=== PATIENT | female | born 2005 | race Caucasian/White ===

== ENCOUNTER 2024-01-05 11:23 | Outpatient (AMB) | payer BC, SELFPAY ==
--- NOTE | 2024-01-05 11:31 | MHC.PC.OV ---
Vital Signs 01/05/24 11:39 Height 5 ft 7 in Weight 134 lb BMI 21.0 BP 102/68 Blood Pressure Location Rt brachial Position Sitting Respiration 16 Pulse 85 Pulse Source Pulse Oximeter Temp 98.8 F Temp Source Oral Pulse Oximetry (%) 97 Oxygen Delivery Method Room Air Intake Visit Reasons: establish care Intake Note: New patient visit. Vertigo, anxiety, stomach issues Steam Tender Required: No Accompanied by: Mother Is last menstrual period known: Yes Last menstrual period: 01/05/24 Patient : No Allergies No Known Allergies Allergy (Verified 01/05/24 11:34) Medication List - Last Reconciled 01/05/24 by Alexia Hare PA-C clindamycin phosphate 1% 1 appl topical DAILY escitalopram oxalate (Lexapro) 5 mg PO DAILY spironolactone 100 mg PO DAILY tretinoin 0.025% 1 appl topical BEDTIME Tobacco use date assessed: 01/05/24 Dental Screening Dental Screen Date: 01/05/24 Did you have a dental visit in the last 12 months?: Yes Did you have a dental problem in the last 6 months where you did not have access to dental care?: No Was dental information given to patient?: Patient has dentist [facility] Medical History (Updated 01/05/24 @ 12:41 by Alexia Hare PA-C) PCOS (polycystic ovarian syndrome) Generalized anxiety disorder with panic attacks IBS (irritable bowel syndrome) Family History (Updated 01/05/24 @ 12:45 by Alexia Hare PA-C) Mother Hypothyroid Maternal Grandfather FH: prostate cancer Paternal Uncle Colon cancer Social History Patient Tobacco Use Status: Never used Tobacco e-Cigarette/Vaping Use: Never Used Second Hand Smoke Exposure: No service: No Current occupational status: unemployed and student Cognitive needs: No Hearing needs: No Vision needs: No Female Reproductive History Menstrual Date of last menstrual period: 01/05/24 Questionnaire AUDIT C Alcohol Use Questionnaire (AUDIT-C) 1. How often do you have a drink containing alcohol?: Never 3. How often do you have six or more drinks on one occasion?: Never Total Score: 0 Physical exam (Primary Care) Vital Signs: Last Vital Signs Temp 98.8 F 01/05/24 11:39 Pulse 85 01/05/24 11:39 Resp 16 01/05/24 11:39 BP 102/68 01/05/24 11:39 Pulse Ox 97 01/05/24 11:39 Oxygen Delivery Method Room Air 01/05/24 11:39 BMI result Body Mass Index 21.0 Tobacco/Smoking Status: Tobacco use Status Tobacco use date assessed 01/05/24 01/05/24 11:48 Patient Tobacco Use Status Never used Tobacco 01/05/24 11:48 e-Cigarette/Vaping Use Never Used 01/05/24 11:48 PHQ-9: PHQ-9 Score PHQ-9: Total score 3 01/05/24 12:40 Thrive Assessment: Date of Thrive Assessment Date Thrive assessed 01/05/24 01/05/24 12:02 Assessment and Plan Assessment & Plan Orders: Orders Complete Blood Count Auto Diff Today Z00.00 - Encounter for general adult medical examination without abnormal findings TSH reflex Free T4 () Today F41.0 - Panic disorder [episodic paroxysmal anxiety], F41.1 - Generalized anxiety disorder, R10.84 - Generalized abdominal pain, R19.7 - Diarrhea, unspecified US abdomen complete Today R10.84 - Generalized abdominal pain, R19.7 - Diarrhea, unspecified Comprehensive Met. Panel Today F41.0 - Panic disorder [episodic paroxysmal anxiety], F41.1 - Generalized anxiety disorder, R10.84 - Generalized abdominal pain, R19.7 - Diarrhea, unspecified Referrals Gastroenterology Referral K58.9 - Irritable bowel syndrome without diarrhea, R10.84 - Generalized abdominal pain, R19.7 - Diarrhea, unspecified Medications: New spironolactone 100 mg PO DAILY escitalopram oxalate (Lexapro) 5 mg PO DAILY 30 tabs 1RF Coding
[2024-01-05 11:39] VITALS: BP 102/68; PULSE 85; RESP 16; TEMP 37.1; O2SAT 97; BMI 21.0
--- NOTE | 2024-01-05 11:39 | MHC.PC.OV ---
Vital Signs 01/05/24 11:39 Height 5 ft 7 in Weight 134 lb BMI 21.0 BP 102/68 Blood Pressure Location Rt brachial Position Sitting Respiration 16 Pulse 85 Pulse Source Pulse Oximeter Temp 98.8 F Temp Source Oral Pulse Oximetry (%) 97 Oxygen Delivery Method Room Air Intake Visit Reasons: establish care Allergies No Known Allergies Allergy (Verified 01/05/24 11:34) Medication List - Last Reconciled 01/05/24 by Alexia Hare PA-C clindamycin phosphate 1% 1 appl topical DAILY escitalopram oxalate (Lexapro) 5 mg PO DAILY spironolactone 100 mg PO DAILY tretinoin 0.025% 1 appl topical BEDTIME Tobacco use date assessed: 01/05/24 Dental Screening Dental Screen Date: 01/05/24 Did you have a dental visit in the last 12 months?: Yes Did you have a dental problem in the last 6 months where you did not have access to dental care?: No Was dental information given to patient?: Patient has dentist HPI establish care HPI Details Patient is a 18-year-old female who presents today to establish [facility]. She has a significant pmhx of pcos acne, generalized anxiety and ibs. She has a few concerns today. Her last PCP was from pediatrics with a cpe in 05/25. GI: She states she has been having diarrhea/gi issues since childhood. In childhood she thinks she tried a medication like bentyl. She states that a few years ago she complained to her computer support specialist instructor about her symptoms and she was told that it was likely related to anxiety. She tells me that she is generally an anxious person. At that time, it was recommended that she start therapy. She states that her symptoms are not better despite going to a therapist and have gradually worsened.. She states that for the last year she has been having 5-6 bowel movements a day. She states there is no blood but at times there is mucus in the stools. She has intermittent ?normal? soft bowel movements that occur maybe once every 1-2 weeks. She states that it is always in the setting with diarrhea throughout the day. Anytime she eats something she feels like it goes right through her. She does try to eat healthy. She states that she is had allergy testing for lactose and gluten but was told that she did not have anything like that. Before she developed the diarrhea she does have intense abdominal pain and cramping. She states that after she eats she will get a generalized discomfort and stabbing pain throughout her abdomen but worse surrounding the umbilicus. It does tend to resolve when she has a bowel movement. She denies any rectal pain or irritation. No weight loss. No hx of prior colonoscopy. Paternal uncle has colon ca at age of 60. Psych: She tells me today that she is at the point where she thinks that she should start medication for this. She tells me that she worries over most things even if she knows that will be fine. Denies any depression. No thoughts of hopelessness. No SI/HI. Club Manager: History of PCOS and does follow [facility]. She has never been sexually active. Derm: Follows with [facility] and sees them for acne. She is currently on clindamycin, tretinoin and spironolactone 100 mg. [facility] Medical History (Updated 01/05/24 @ 12:41 by Alexia Hare PA-C) PCOS (polycystic ovarian syndrome) Generalized anxiety disorder with panic attacks IBS (irritable bowel syndrome) Family History (Updated 01/05/24 @ 12:44 by Alexia Hare PA-C) Mother Hypothyroid Maternal Grandfather FH: prostate cancer Paternal Uncle Colon cancer Social History Patient Tobacco Use Status: Never used Tobacco e-Cigarette/Vaping Use: Never Used Second Hand Smoke Exposure: No service: No Current occupational status: unemployed and student Cognitive needs: No Hearing needs: No Vision needs: No Questionnaire PHQ-9 Over the last 2 weeks, how often have you been bothered by any of the following problems? 1. Little interest or pleasure in doing things: not at all 2. Feeling down, depressed, or hopeless: several days 3. Trouble falling or staying asleep, or sleeping too much: several days 4. Feeling tired or having little energy: several days 5. Poor appetite or overeating: not at all 6. Feeling bad about yourself - or that you are a failure or have let yourself or your family down: not at all 7. Trouble concentrating on things, such as reading the newspaper or watching television: not at all 8. Moving or speaking so slowly that other people could have noticed. Or the opposite - being so fidgety or restless that you have been moving around a lot more than usual: not at all 9. Thoughts that you would be better off or of hurting yourself in some way: not at all Total score: 3 Depression Screening Interpretation: Positive Depression Screening Follow-up: New Medication prescribed Depression Screening Done: Yes 88986 - PHQ-9 Billing: Yes Source: Developed by Drs. Tristan Moon, Alise Espinoza, Agapito Higgins and colleagues, with an educational bryant from [employer]. Thrive Questionnaire Date Thrive assessed: 01/05/24 I am a: Patient What is your living situation today?: I have a steady place to live Within the past 12 months, did the food you bought not last and you didn't have the money to get more?: Never true Within the past 12 months, did you worry whether your food would run out before you got money to buy more?: Never true Do you have trouble paying for medicines?: No Do you have trouble getting transportation to medical appointments?: No Do you have trouble paying your heating and electricity bill?: No Do you have trouble taking care of your child, family member or friend?: No Do you have trouble with day-to-day activities such as bathing, preparing meals, shopping, managing finances, etc.?: No Are you currently unemployed and looking for a job?: No Are you interested in more education?: No Please select the resources that you would like help with: None Currently or been in a relationship where the following occur: no concerns reported THRIVE Score: 0 AUDIT C Alcohol Use Questionnaire (AUDIT-C) 1. How often do you have a drink containing alcohol?: Never 3. How often do you have six or more drinks on one occasion?: Never Total Score: 0 Score Reviewed/Action Taken: Yes REESE-7 AMB Questionnaire REESE-7 Date REESE - 7 assessed: 01/05/24 Feeling nervous, anxious, or on edge: 1 = Several days Not being able to stop or control worryin = Several days Worrying too much about different things: 1 = Several days Trouble relaxin = Not at all Being so restless that it is hard to sit still: 1 = Several days Becoming easily annoyed or irritable: 1 = Several days Feeling afraid as if something awful might happen: 1 = Several days Total REESE-7 score (0-4 normal; 5-9 mild; 10-14 moderate; 15-21 severe): 6 Source: Developed by Drs. Tristan Moon, Alise Espinoza, Agapito Higgins and colleagues, with an educational bryant from [employer]. REESE-7 Assessment Billing REESE-7 Assessment Tool: REESE-7 Assessment 09108 Physical exam (Primary Care) Vital Signs: Last Vital Signs Temp 98.8 F 01/05/24 11:39 Pulse 85 01/05/24 11:39 Resp 16 01/05/24 11:39 BP 102/68 01/05/24 11:39 Pulse Ox 97 01/05/24 11:39 Oxygen Delivery Method Room Air 01/05/24 11:39 BMI result Body Mass Index 21.0 Tobacco/Smoking Status: Tobacco use Status Tobacco use date assessed 01/05/24 01/05/24 11:39 Patient Tobacco Use Status Never used Tobacco 01/05/24 11:39 e-Cigarette/Vaping Use Never Used 01/05/24 11:39 Depression Screening Interpretation: Positive Depression Screening Follow-up: New Medication prescribed Currently or been in a relationship where the following occur: no concerns reported Const Orientation/consciousness: patient oriented x3 HENMT Ears: hearing grossly normal bilaterally Neck Thyroid: Thyroid normal Lymphatic: no lymphadenopathy noted Resp Auscultation: clear to auscultation bilaterally Cardio Rate: regular rate Rhythm: regular rhythm Heart sounds: S1 normal heart sound present and S2 normal heart sound present GI Inspection: Yes normal to inspection Palpation (GI): Soft to palpation and Other GI palpation findings present (nontender, no cva tenderness) Auscultation: normoactive bowel sounds Rectal Exam - Female: deferred Skin General skin exam: no rashes or lesions noted Neuro General: patient oriented x3, gait normal and no focal motor deficits Assessment and Plan Assessment & Plan (1) Generalized abdominal pain: Code(s): R10.84 - Generalized abdominal pain Plan: Abdominal exam today is benign. Labs ordered including CBC, CMP, TSH. We did discuss elimination diet. Referral to GI placed. We discussed warning signs of abdominal pain that would require emergent medical treatment. (2) Diarrhea: Code(s): R19.7 - Diarrhea, unspecified Plan: See above (3) Generalized anxiety disorder with panic attacks: Code(s): F41.1 - Generalized anxiety disorder; F41.0 - Panic disorder [episodic paroxysmal anxiety] Plan: Will start patient on Lexapro. Discussed risks and benefits and adverse effects of this medication. Advised to follow-up in 4-6 weeks. Sooner if needed. Patient understands and agrees with this plan. Orders: Orders Complete Blood Count Auto Diff Today Z00.00 - Encounter for general adult medical examination without abnormal findings TSH reflex Free T4 () Today F41.0 - Panic disorder [episodic paroxysmal anxiety], F41.1 - Generalized anxiety disorder, R10.84 - Generalized abdominal pain, R19.7 - Diarrhea, unspecified US abdomen complete Today R10.84 - Generalized abdominal pain, R19.7 - Diarrhea, unspecified Comprehensive Met. Panel Today F41.0 - Panic disorder [episodic paroxysmal anxiety], F41.1 - Generalized anxiety disorder, R10.84 - Generalized abdominal pain, R19.7 - Diarrhea, unspecified Referrals Gastroenterology Referral K58.9 - Irritable bowel syndrome without diarrhea, R10.84 - Generalized abdominal pain, R19.7 - Diarrhea, unspecified Medications: New spironolactone 100 mg PO DAILY escitalopram oxalate (Lexapro) 5 mg PO DAILY 30 tabs 1RF Coding Level of Care Code New Pt Level 4 (35146) Diagnoses Generalized abdominal pain R10.84 Diarrhea R19.7 Generalized anxiety disorder with panic attacks F41.1; F41.0 Additional Codes REESE-7 Assessment Billing - REESE-7 Assessment Tool: REESE-7 Assessment 19181 ([id number])
== END 2024-01-05 12:32 | disposition home or self-care (01) ==
PROVIDERS: PCP Pediatrics; Visit Provider Physician Assistant
DX: R10.84 Generalized abdominal pain (principal); R19.7 Diarrhea, unspecified; F41.1 Generalized anxiety disorder; F41.0 Panic disorder [episodic paroxysmal anxiety]
CPT/HCPCS: 96127; 99204

== ENCOUNTER 2024-01-05 12:34 | Outpatient (REF) | payer BC, SELFPAY ==
[2024-01-05 14:20] LABS: MANUAL DIFF FLAG NO
[2024-01-05 14:23] LABS: Basophils Percent Auto 0.7 % (0-2); Eosinophils Percent Auto 0.4 % (0-4); Hematocrit 40.6 % (37.0-47.0); Hemoglobin 13.5 g/dl (12.0-16.0); Imm Gran Abs Auto 0.02 X10*3/uL (0.00-0.03); Imm Gran Pct Auto 0.4 % (0.0-0.4); Lymphocytes Percent Auto 36.5 % (20-40); Mean Corpuscular HGB Conc 33.3 g/dl (31.0-35.0); Mean Corpuscular Volume 84.1 fL (80.0-98.0); Mean Platelet Volume 9.3 fL (9.4-12.3); Monocytes Absolute Auto 0.4 X10*3/uL (0.1-1.2); Monocytes Percent Auto 6.4 % (2-11); Neutrophils Absolute Auto 3.1 x10*3/uL (2.0-8.3); Neutrophils Percent Auto 55.6 % (45-73); Platelet Count 385 X10*3/uL (160-400); Red Blood Count 4.83 X10*6/uL (4.20-5.50); Red Cell Distribution Width 11.7 % (11.0-16.0); White Blood Count 5.5 X10*3/uL (4.8-10.8)
[2024-01-05 14:46] LABS: Alanine Aminotransferase 19 U/L (0-31); Albumin Level 3.9 g/dL (3.5-5.0); Alkaline Phosphatase 62 U/L (39-117); Anion Gap 10 (12-20); Aspartate Amino Transferase 18 U/L (5-31); Bilirubin Total 0.3 mg/dL (0.0-1.0); Blood Urea Nitrogen 11 mg/dL (9-16); Calcium 9.5 mg/dL (8.4-10.2); Carbon Dioxide 27 mmol/L (22-29); Chloride 109 mmol/L (96-108); Estimated Glomerular Filt Rate > 60; Glucose Random 84 mg/dL (60-115); Potassium 4.5 mmol/L (3.3-5.1); Sodium 141 mmol/L (135-145)
[2024-01-05 14:59] LABS: TSH reflex Free T4 (Prenatal) 0.96 uIU/mL (0.32-4.0)
== END 2024-01-05 12:35 | disposition home or self-care (01) ==
LOC: HO.WFDLDS 12:34
PROVIDERS: Visit Provider Physician Assistant
DX: Z00.00 Encounter for general adult medical examination without abnormal findings (principal); R10.84 Generalized abdominal pain; F41.1 Generalized anxiety disorder; F41.0 Panic disorder [episodic paroxysmal anxiety]; R19.7 Diarrhea, unspecified
CPT/HCPCS: 36415; 80053; 85025

== ENCOUNTER 2024-02-08 13:42 | Outpatient (AMB) | payer BC, SELFPAY ==
--- NOTE | 2024-02-08 13:58 | A.OFFPC_ITS ---
Vital Signs 02/08/24 14:00 Height 5 ft 7 in Weight 128 lb 6 oz BMI 20.1 BP 108/64 Blood Pressure Location Rt brachial Position Sitting Respiration 16 Pulse 78 Pulse Source Pulse Oximeter Pulse Oximetry (%) 96 Oxygen Delivery Method Room Air Intake Visit Reasons: anxiety med Intake Note: Follow up anxiety medication Guest Services Officer Required: No Allergies No Known Allergies Allergy (Verified 02/08/24 13:59) Medication List - Last Reconciled 02/08/24 by Alexia Hare PA-C clindamycin phosphate 1% 1 appl topical DAILY escitalopram oxalate (Lexapro) 10 mg PO DAILY 90 days spironolactone 100 mg PO DAILY tretinoin 0.025% 1 appl topical BEDTIME Tobacco use date assessed: 02/08/24 Dental Screening Dental Screen Date: 01/05/24 HPI anxiety med HPI Details Patient is a 18-year-old female who presents today for a follow up regarding her anxiety. At our last visit I started her on Lexapro. Psych: At our last visit she was started on Lexapro. She states that this is somewhat effective but she thinks that she would benefit from an increased dosage. She recently completed her college finals and states that that was stressful. 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 She states that she will start the [employer] program in May through October. No SI/HI. She states that she just wants her anxiety controlled prior to going to [employer]. GI: At our last visit she was encouraged to try an elimination diet. She did not try the diet. Her pain is unchanged. She states she had to reschedule her u ltrasound because of finals. She forgot to do this and plans to call today. She was referred to GI and states that she has not heard about an appointment but plans to call. [facility] Medical History (Updated 01/05/24 @ 12:41 by Alexia Hare PA-C) PCOS (polycystic ovarian syndrome) Generalized anxiety disorder with panic attacks IBS (irritable bowel syndrome) Family History (Updated 01/05/24 @ 12:45 by Alexia Hare PA-C) Mother Hypothyroid Maternal Grandfather FH: prostate cancer Paternal Uncle Colon cancer Social History Patient Tobacco Use Status: Never used Tobacco e-Cigarette/Vaping Use: Never Used Second Hand Smoke Exposure: No service: No Current occupational status: unemployed and student Cognitive needs: No Hearing needs: No Vision needs: No Questionnaire PHQ-9 Over the last 2 weeks, how often have you been bothered by any of the following problems? 1. Little interest or pleasure in doing things: several days 2. Feeling down, depressed, or hopeless: several days 3. Trouble falling or staying asleep, or sleeping too much: several days 4. Feeling tired or having little energy: more than half the days 5. Poor appetite or overeating: several days 6. Feeling bad about yourself - or that you are a failure or have let yourself or your family down: not at all 7. Trouble concentrating on things, such as reading the newspaper or watching television: not at all 8. Moving or speaking so slowly that other people could have noticed. Or the opposite - being so fidgety or restless that you have been moving around a lot more than usual: not at all 9. Thoughts that you would be better off or of hurting yourself in some way: not at all Total score: 6 Depression Screening Interpretation: Positive Depression Screening Done: Yes 46277 - PHQ-9 Billing: Yes Source: Developed by Drs. Tristan Moon, Agapito Lino and colleagues, with an educational bryant from [employer]. Thrive Questionnaire Date Thrive assessed: 01/05/24 REESE-7 AMB Questionnaire REESE-7 Date REESE - 7 assessed: 02/08/24 Feeling nervous, anxious, or on edge: 1 = Several days Not being able to stop or control worryin = More than half the days Worrying too much about different things: 1 = Several days Trouble relaxin = More than half the days Being so restless that it is hard to sit still: 1 = Several days Becoming easily annoyed or irritable: 2 = More than half the days Feeling afraid as if something awful might happen: 1 = Several days Total REESE-7 score (0-4 normal; 5-9 mild; 10-14 moderate; 15-21 severe): 10 Source: Developed by Drs. Tristan Moon, Agapito Lino and colleagues, with an educational bryant from [employer]. REESE-7 Assessment Billing REESE-7 Assessment Tool: REESE-7 Assessment 38710 Physical exam (Primary Care) Vital Signs: Last Vital Signs Pulse 78 02/08/24 14:00 Resp 16 02/08/24 14:00 BP 108/64 02/08/24 14:00 Pulse Ox 96 02/08/24 14:00 Oxygen Delivery Method Room Air 02/08/24 14:00 BMI result Body Mass Index 20.1 Tobacco/Smoking Status: Tobacco use Status Tobacco use date assessed 02/08/24 02/08/24 14:00 Patient Tobacco Use Status Never used Tobacco 02/08/24 14:00 e-Cigarette/Vaping Use Never Used 02/08/24 14:00 PHQ-9: PHQ-9 Score PHQ-9: Total score 6 02/08/24 14:05 Depression Screening Interpretation: Positive Thrive Assessment: Date of Thrive Assessment Date Thrive assessed 01/05/24 02/08/24 14:00 Const Orientation/consciousness: patient oriented x3 HENMT Ears: hearing grossly normal bilaterally Neck Thyroid: Thyroid normal Lymphatic: no lymphadenopathy noted Resp Auscultation: clear to auscultation bilaterally Cardio Rate: regular rate Rhythm: regular rhythm Heart sounds: S1 normal heart sound present and S2 normal heart sound present GI Inspection: Yes normal to inspection Palpation (GI): Soft to palpation and Other GI palpation findings present (nontender, no cva tenderness) Auscultation: normoactive bowel sounds Skin General skin exam: no rashes or lesions noted Neuro General: patient oriented x3, gait normal and no focal motor deficits Results Reviewed Results Reviewed: Laboratory Tests 01/05/24 01/05/24 12:35 Unknown WBC 5.5 RBC 4.83 Hgb 13.5 Hct 40.6 Plt Count 385 Sodium 141 Potassium 4.5 Chloride 109 H Carbon Dioxide 27 Anion Gap 10 L BUN 11 Creatinine 0.68 Estimated GFR > 60 Random Glucose 84 Calcium 9.5 Total Bilirubin 0.3 AST 18 ALT 19 Alkaline Phosphatase 62 Total Protein 7.0 Albumin 3.9 TSH 3rd Generation 0.96 Assessment and Plan Assessment & Plan (1) Generalized anxiety disorder with panic attacks: Code(s): F41.1 - Generalized anxiety disorder; F41.0 - Panic disorder [episodic paroxysmal anxiety] Plan: We will increase the Lexapro to 10 mg. (2) Generalized abdominal pain: Code(s): R10.84 - Generalized abdominal pain Plan: Abdominal exam today is benign. Reminded her to reschedule her ultrasound. Reviewed labs with her. Encouraged elimination diet. She is going to contact GI for an appointment. Plan Patient will follow up in 4-6 weeks. Sooner if needed. Patient understands and agrees with the plan. Medications: New escitalopram oxalate (Lexapro) 10 mg PO DAILY 90 days 90 tabs 1RF Discontinued escitalopram oxalate (Lexapro) Discontinued Reason: Doctor's Order 5 mg PO DAILY 30 tabs 1RF Coding Level of Care Code Est Pt Level 3 (89761) Complex EM visit Add On G2211 Diagnoses Generalized anxiety disorder with panic attacks F41.1; F41.0 Generalized abdominal pain R10.84 Additional Codes REESE-7 Assessment Billing - REESE-7 Assessment Tool: REESE-7 Assessment 43974 ([id number])
[2024-02-08 14:00] VITALS: BP 108/64; PULSE 78; RESP 16; O2SAT 96; BMI 20.1
== END 2024-02-08 14:22 | disposition home or self-care (01) ==
PROVIDERS: PCP Pediatrics; Visit Provider Physician Assistant
DX: R10.84 Generalized abdominal pain (principal); F41.1 Generalized anxiety disorder; F41.0 Panic disorder [episodic paroxysmal anxiety]
CPT/HCPCS: 96127; 99213; G2211

== ENCOUNTER 2024-02-23 08:20 | Outpatient (REF) | payer BC, SELFPAY ==
--- NOTE | ~2024-02-23 | US_ITS ---
EXAMINATION: US ABDOMEN COMPLETE CLINICAL INFORMATION: Generalized abdominal pain. COMPARISON: None available. TECHNIQUE: Real-time imaging of the abdominal viscera. FINDINGS: PANCREAS: Normal. ABDOMINAL AORTA: The proximal, mid, and distal segments are normal in caliber. INFERIOR VENA CAVA: Visualized portions are normal. LIVER: Normal. The liver is normal in size. The liver contour is normal. Parenchymal echogenicity is normal. No focal hepatic lesion. There is no intrahepatic biliary duct dilatation seen. GALLBLADDER: Normal. The gallbladder is physiologically distended without evidence of stones, sludge, polyps, wall thickening or pericholecystic fluid. COMMON BILE DUCT: Normal in caliber measuring 0.3 cm in diameter. RIGHT KIDNEY: Normal. No hydronephrosis. No renal calculi or focal parenchymal lesions. The kidney measures 9.1 cm in maximum dimension. LEFT KIDNEY: Normal. No hydronephrosis. No renal calculi or focal parenchymal lesions. The kidney measures 10.2 cm in maximum dimension. SPLEEN: Normal. The spleen measures 7.4 cm in maximum dimension. FREE FLUID: None. US/US abdomen complete IMPRESSION: Unremarkable examination.
== END 2024-02-23 08:21 | disposition home or self-care (01) ==
LOC: HO.US 08:20
PROVIDERS: PCP Physician Assistant; Visit Provider Physician Assistant
DX: R10.84 Generalized abdominal pain (principal); R19.7 Diarrhea, unspecified
CPT/HCPCS: 76700

== ENCOUNTER 2024-05-03 08:40 | Outpatient (AMB) | payer BC, SELFPAY ==
--- NOTE | 2024-05-03 08:51 | MHC.PC.OV ---
Vital Signs 05/03/24 08:57 Height 5 ft 7 in Weight 128 lb BMI 20.0 BP 90/60 Blood Pressure Location Lt brachial Position Sitting Respiration 16 Pulse 78 Pulse Source Pulse Oximeter Temp 98.3 F Temp Source Oral Pulse Oximetry (%) 98 Oxygen Delivery Method Room Air Intake Visit Reasons: Anxiety med f/u Intake Note: anxiety med follow up. Is last menstrual period known: Yes Last menstrual period: 04/25/24 Post menopausal: No Patient : No Allergies No Known Allergies Allergy (Verified 05/03/24 08:54) Medication List - Last Reconciled 05/03/24 by Alexia Hare PA-C clindamycin phosphate 1% 1 appl topical DAILY tretinoin 0.025% 1 appl topical BEDTIME Tobacco use date assessed: 05/03/24 Dental Screening Dental Screen Date: 05/03/24 Did you have a dental visit in the last 12 months?: Yes Did you have a dental problem in the last 6 months where you did not have access to dental care?: No Was dental information given to patient?: Patient has dentist HPI Anxiety med f/u HPI Details Patient is a 18-year-old female who presents today for a follow up regarding her anxiety. She recently was on an increased dose of Lexapro. She states that it feels like this medication makes her feel a little drowsy. She did not take it for 1 week because she forgot to take it and she felt that her energy improved but her anxiety was flared. She does find this helpful for her anxiety but wonders if we could try a different medication. Denies any SI/HI. [facility] Medical History (Updated 01/05/24 @ 12:41 by Alexia Hare PA-C) PCOS (polycystic ovarian syndrome) Generalized anxiety disorder with panic attacks IBS (irritable bowel syndrome) Family History (Updated 01/05/24 @ 12:45 by Alexia Hare PA-C) Mother Hypothyroid Maternal Grandfather FH: prostate cancer Paternal Uncle Colon cancer Social History Housing: House Patient Tobacco Use Status: Never used Tobacco e-Cigarette/Vaping Use: Never Used Second Hand Smoke Exposure: No service: No Current occupational status: unemployed and student Cognitive needs: No Hearing needs: No Vision needs: No Female Reproductive History Menstrual Date of last menstrual period: 04/25/24 Questionnaire Thrive Questionnaire Date Thrive assessed: 01/05/24 REESE-7 AMB Questionnaire REESE-7 Date REESE - 7 assessed: 02/08/24 Source: Developed by Drs. Tristan Moon, Alise Espinoza, Agapito Higgins and colleagues, with an educational bryant from [employer]. Physical exam (Primary Care) Vital Signs: Last Vital Signs Temp 98.3 F 05/03/24 08:57 Pulse 78 05/03/24 08:57 Resp 16 05/03/24 08:57 BP 90/60 05/03/24 08:57 Pulse Ox 98 05/03/24 08:57 Oxygen Delivery Method Room Air 05/03/24 08:57 BMI result Body Mass Index 20.0 Tobacco/Smoking Status: Tobacco use Status Tobacco use date assessed 05/03/24 05/03/24 08:59 Patient Tobacco Use Status Never used Tobacco 05/03/24 08:53 e-Cigarette/Vaping Use Never Used 05/03/24 08:53 Thrive Assessment: Date of Thrive Assessment Date Thrive assessed 01/05/24 05/03/24 08:53 Const Orientation/consciousness: patient oriented x3 HENMT Ears: hearing grossly normal bilaterally Neck Thyroid: Thyroid normal Lymphatic: no lymphadenopathy noted Resp Auscultation: clear to auscultation bilaterally Cardio Rate: regular rate Rhythm: regular rhythm Heart sounds: S1 normal heart sound present and S2 normal heart sound present GI Inspection: Yes normal to inspection Palpation (GI): Soft to palpation and Other GI palpation findings present (nontender, no cva tenderness) Auscultation: normoactive bowel sounds Rectal Exam - Female: deferred Skin General skin exam: no rashes or lesions noted Neuro General: patient oriented x3, gait normal and no focal motor deficits Assessment and Plan Assessment & Plan (1) Generalized anxiety disorder with panic attacks: Code(s): F41.1 - Generalized anxiety disorder; F41.0 - Panic disorder [episodic paroxysmal anxiety] Plan: We will discontinue Lexapro. Start citalopram. Discussed risks and benefits and adverse effects of this medication including GI upset, increased risk of SI/HI. We will follow up before she leaves for [place]. She will follow up sooner if anything worsens or changes. Patient understands and agrees with the plan. Medications: New citalopram 10 mg PO DAILY 90 tabs 0RF Coding Level of Care Code Est Pt Level 3 (95461) Diagnoses Generalized anxiety disorder with panic attacks F41.1; F41.0
[2024-05-03 08:57] VITALS: BP 90/60; PULSE 78; RESP 16; TEMP 36.8; O2SAT 98
== END 2024-05-03 09:12 | disposition home or self-care (01) ==
PROVIDERS: PCP Physician Assistant; Visit Provider Physician Assistant
DX: F41.1 Generalized anxiety disorder (principal); F41.0 Panic disorder [episodic paroxysmal anxiety]
CPT/HCPCS: 99213

== ENCOUNTER 2024-05-17 08:24 | Outpatient (AMB) | payer BC, SELFPAY ==
--- NOTE | 2024-05-17 08:25 | MHC.PC.OV ---
Vital Signs 05/17/24 08:34 Height 5 ft 7 in Weight 130 lb 6 oz BMI 20.4 BP 98/60 Blood Pressure Location Lt brachial Position Sitting Respiration 12 Pulse 87 Pulse Source Pulse Oximeter Pulse Oximetry (%) 97 Oxygen Delivery Method Room Air Intake Visit Reasons: anxiety f/u Intake Note: Follow up anxiety. Bilateral ear pain. Construction Checker Required: No Allergies No Known Allergies Allergy (Verified 05/17/24 08:33) Medication List - Last Reconciled 05/17/24 by Alexia Hare PA-C citalopram 10 mg PO DAILY clindamycin phosphate 1% 1 appl topical DAILY drospirenone-ethinyl estradiol 3-0.02 mg (Lo-Zumandimine (28)) 1 tab PO DAILY tretinoin 0.025% 1 appl topical BEDTIME Tobacco use date assessed: 05/03/24 Dental Screening Dental Screen Date: 05/03/24 HPI anxiety f/u HPI Details Patient is a 18-year-old female who presents today for an anxiety follow up. Recently started on citalopram and feels like this is helping. Tolerates this much more than the Lexapro. States her energy is normal. Her anxiety is improved but she is still nervous about her transitioned to [place]. She leaves on Tuesday. No SI/HI. Does not feel like she is getting any breakthrough panic attacks. She tells me she will message me when she gets down there but thinks the 10 mg is effective. [facility] Medical History (Updated 01/05/24 @ 12:41 by Alexia Hare PA-C) PCOS (polycystic ovarian syndrome) Generalized anxiety disorder with panic attacks IBS (irritable bowel syndrome) Family History (Updated 01/05/24 @ 12:45 by Alexia Hare PA-C) Mother Hypothyroid Maternal Grandfather FH: prostate cancer Paternal Uncle Colon cancer Social History Housing: House Patient Tobacco Use Status: Never used Tobacco e-Cigarette/Vaping Use: Never Used Second Hand Smoke Exposure: No service: No Current occupational status: unemployed and student Cognitive needs: No Hearing needs: No Vision needs: No Questionnaire PHQ-9 Over the last 2 weeks, how often have you been bothered by any of the following problems? 1. Little interest or pleasure in doing things: several days 2. Feeling down, depressed, or hopeless: several days 3. Trouble falling or staying asleep, or sleeping too much: several days 4. Feeling tired or having little energy: several days 5. Poor appetite or overeating: not at all 6. Feeling bad about yourself - or that you are a failure or have let yourself or your family down: not at all 7. Trouble concentrating on things, such as reading the newspaper or watching television: not at all 8. Moving or speaking so slowly that other people could have noticed. Or the opposite - being so fidgety or restless that you have been moving around a lot more than usual: not at all 9. Thoughts that you would be better off or of hurting yourself in some way: not at all Total score: 4 Depression Screening Interpretation: Positive Depression Screening Done: Yes 41497 - PHQ-9 Billing: Yes Source: Developed by Drs. Tristan Moon, Alise Espinoza, Agapito Higgins and colleagues, with an educational bryant from [employer]. Thrive Questionnaire Date Thrive assessed: 01/05/24 REESE-7 AMB Questionnaire REESE-7 Date REESE - 7 assessed: 05/17/24 Feeling nervous, anxious, or on edge: 2 = More than half the days Not being able to stop or control worryin = More than half the days Worrying too much about different things: 2 = More than half the days Trouble relaxin = More than half the days Being so restless that it is hard to sit still: 2 = More than half the days Becoming easily annoyed or irritable: 3 = Nearly every day Feeling afraid as if something awful might happen: 1 = Several days Total REESE-7 score (0-4 normal; 5-9 mild; 10-14 moderate; 15-21 severe): 14 Source: Developed by Drs. Tristan Moon, Alise Espinoza, Agapito Higgins and colleagues, with an educational bryant from [employer]. REESE-7 Assessment Billing REESE-7 Assessment Tool: REESE-7 Assessment 80000 Physical exam (Primary Care) Vital Signs: Last Vital Signs Pulse 87 05/17/24 08:34 Resp 12 05/17/24 08:34 BP 98/60 05/17/24 08:34 Pulse Ox 97 05/17/24 08:34 Oxygen Delivery Method Room Air 05/17/24 08:34 BMI result Body Mass Index 20.4 Tobacco/Smoking Status: Tobacco use Status Tobacco use date assessed 05/03/24 05/17/24 08:27 Patient Tobacco Use Status Never used Tobacco 05/17/24 08:27 e-Cigarette/Vaping Use Never Used 05/17/24 08:27 PHQ-9: PHQ-9 Score PHQ-9: Total score 4 05/17/24 08:38 Depression Screening Interpretation: Positive Thrive Assessment: Date of Thrive Assessment Date Thrive assessed 01/05/24 05/17/24 08:27 Const Orientation/consciousness: patient oriented x3 HENMT Ears: hearing grossly normal bilaterally Neck Thyroid: Thyroid normal Lymphatic: no lymphadenopathy noted Resp Auscultation: clear to auscultation bilaterally Cardio Rate: regular rate Rhythm: regular rhythm Heart sounds: S1 normal heart sound present and S2 normal heart sound present GI Inspection: Yes normal to inspection Palpation (GI): Soft to palpation and Other GI palpation findings present (nontender, no cva tenderness) Auscultation: normoactive bowel sounds Rectal Exam - Female: deferred Skin General skin exam: no rashes or lesions noted Neuro General: patient oriented x3, gait normal and no focal motor deficits Assessment and Plan Assessment & Plan (1) Generalized anxiety disorder with panic attacks: Code(s): F41.1 - Generalized anxiety disorder; F41.0 - Panic disorder [episodic paroxysmal anxiety] Plan: Feels improved with Celexa. Continue current regimen. Follow up in October or sooner prn Medications: New drospirenone-ethinyl estradiol 3-0.02 mg (Lo-Zumandimine (28)) 1 tab PO DAILY 84 tabs 3RF Coding Level of Care Code Est Pt Level 3 (35135) Diagnoses Generalized anxiety disorder with panic attacks F41.1; F41.0 Additional Codes REESE-7 Assessment Billing - REESE-7 Assessment Tool: REESE-7 Assessment 83413 ([id number])
[2024-05-17 08:34] VITALS: BP 98/60; PULSE 87; RESP 12; O2SAT 97; BMI 20.4
== END 2024-05-17 08:55 | disposition home or self-care (01) ==
PROVIDERS: PCP Physician Assistant; Visit Provider Physician Assistant
DX: F41.1 Generalized anxiety disorder (principal); F41.0 Panic disorder [episodic paroxysmal anxiety]
CPT/HCPCS: 96127; 99213

== ENCOUNTER 2024-11-05 10:13 | Outpatient (AMB) | payer BC, SELFPAY ==
--- NOTE | 2024-11-05 10:22 | MHC.OFFVIS ---
Vital Signs 11/05/24 10:25 Height 5 ft 7 in Weight 130 lb BMI 20.4 BP 113/65 Blood Pressure Location Lt brachial Position Sitting Pulse 92 Intake Visit Reasons: Irritable bowel syndrome Intake Note: Connie presents in the office as a new patient for IBS. CC: She states that she will hav extreme cramping with diarrhea. She states that a majority of her BMs are diarrhea. The moment she eats it comes right through her. Has been happening her entire life. She was given a medication and was told when she has a flares up to do the OTC IBgard. She was diagnosed with PCOS and she does not get a period when she does not take her control. Allergies No Known Allergies Allergy (Verified 11/05/24 10:25) HPI Comments Details: 18 y.o F with PMH of IBS-D who is here to establish care. Was previously living in [place], moved to [place] in 2009. Was seen by dangelo MASCORRO and had what sounds like SIBO testing which was normal. Was also given amytriptyline x 2-3 months but caused dry eyes and dry mouth with blurry vision. Currently: reports abd cramping daily, with 3 loose BMs. No blood. Sometimes have to wake up from sleep. Cramping resolves after a BM. Tried to do gluten free and dairy free which didnt help in her teens. No fam hx of IBD, colon ca. NO hx of EGD/colo. [facility] Medical History PCOS (polycystic ovarian syndrome) Generalized anxiety disorder with panic attacks IBS (irritable bowel syndrome) Family History Mother Hypothyroid Maternal Grandfather FH: prostate cancer Paternal Uncle No problems noted. Family/Other Colon cancer Paternal Aunt Hx of colonic polyp Social History Housing: House Patient Tobacco Use Status: Never used Tobacco e-Cigarette/Vaping Use: Never Used Second Hand Smoke Exposure: No service: No Current occupational status: unemployed and student Cognitive needs: No Hearing needs: No Vision needs: No Review of Systems Const All systems reviewed & are unremarkable except as noted in HPI and below Physical Exam Vital Signs: Last Vital Signs Pulse 92 11/05/24 10:25 BP 113/65 11/05/24 10:25 BMI result Body Mass Index 20.4 No apparent distress Nonicteric Abdomen soft, nondistended, nontender Alert and oriented x3, normal gait Assessment & Plan Assessment & Plan (1) IBS (irritable bowel syndrome): Code(s): K58.9 - Irritable bowel syndrome, unspecified Category: Medical Plan Sx consistent with IBS-D. Prev records not available to see if celiac, CVID, MCAS etc r/o. Plan: - Labs as below - Add fiber as bulking agent - Take imodium as needed. Can split the dosing in half if gets constipated with 2mg dosing. Follow up 4 weeks Orders: Orders Transglutaminase IgA Today K58.9 - Irritable bowel syndrome, unspecified Calprotectin, Fecal Today K58.9 - Irritable bowel syndrome, unspecified Immunoglobulins,IgG IgA IgM Today K58.9 - Irritable bowel syndrome, unspecified Complete Blood Count no Diff Today K58.9 - Irritable bowel syndrome, unspecified TSH reflex Free T4 Today K58.9 - Irritable bowel syndrome, unspecified Tryptase Today K58.9 - Irritable bowel syndrome, unspecified Medications: New loperamide (Imodium A-D) 2 mg PO QID PRN 90 tabs 1RF loose stool Coding Level of Care Code New Pt Level 4 (05931) Diagnoses IBS (irritable bowel syndrome) K58.9
[2024-11-05 10:25] VITALS: BP 113/65; PULSE 92; BMI 20.4
== END 2024-11-05 13:30 | disposition home or self-care (01) ==
PROVIDERS: PCP Physician Assistant; Visit Provider Internal Medicine
DX: K58.9 Irritable bowel syndrome, unspecified (principal)
CPT/HCPCS: 99204

== ENCOUNTER 2024-11-05 10:13 | Outpatient (REF) | payer BC, SELFPAY ==
[2024-11-05 12:00] LABS: Hematocrit 40.9 % (37.0-47.0); Mean Corpuscular HGB Conc 34.2 g/dl (31.0-35.0); Mean Corpuscular Hemoglobin 27.8 pg (27.0-33.0); Mean Corpuscular Volume 81.2 fL (80.0-98.0); Mean Platelet Volume 9.1 fL (9.4-12.3); Platelet Count 413 X10*3/uL (160-400); Red Blood Count 5.04 X10*6/uL (4.20-5.50); Red Cell Distribution Width 11.9 % (11.0-16.0); White Blood Count 5.1 X10*3/uL (4.8-10.8)
[2024-11-05 12:54] LABS: TSH reflex Free T4 1.98 uIU/mL (0.32-4.0)
[2024-11-07 03:53] LABS: IgA 322 mg/dL (47-310); IgG 1172 mg/dL (600-1640); IgM 77 mg/dL (50-300)
[2024-11-07 22:23] LABS: Transglutaminase IgA 1.4 U/mL
== END 2024-11-05 10:14 | disposition home or self-care (01) ==
LOC: HO.LAB 10:13
PROVIDERS: PCP Physician Assistant; Visit Provider Internal Medicine
DX: K58.9 Irritable bowel syndrome, unspecified (principal)
CPT/HCPCS: 36415; 82784; 83520; 84443; 85027; 86364

== ENCOUNTER 2024-11-21 10:58 | Outpatient (AMB) | payer BC, SELFPAY ==
--- NOTE | 2024-11-21 11:11 | A.OFFPC_ITS ---
Vital Signs 11/21/24 11:12 Height 5 ft 7 in Weight 138 lb 4 oz BMI 21.7 BP 100/72 Blood Pressure Location Rt brachial Position Sitting Respiration 12 Pulse 73 Pulse Source Pulse Oximeter Pulse Oximetry (%) 99 Oxygen Delivery Method Room Air Intake Visit Reasons: anxiety medication. Intake Note: Has been more depressed and anxious lately. Allergies No Known Allergies Allergy (Verified 11/21/24 11:14) Medication List - Last Reconciled 11/21/24 by Alexia Hare PA-C drospirenone-ethinyl estradiol 3-0.02 mg (Lo-Zumandimine (28)) 1 tab PO DAILY loperamide (Imodium A-D) 2 mg PO QID PRN spironolactone 50 mg PO BID tretinoin 0.025% 1 appl topical BEDTIME Tobacco use date assessed: 11/21/24 Dental Screening Dental Screen Date: 05/03/24 HPI anxiety medication. HPI Details Patient is a 18-year-old female who presents today for a follow up regarding her anxiety. She has a history of anxiety and depression and states that recently it has gotten a bit worse. She is currently on Celexa 10 mg which she felt like was effective in the beginning when she started it this but now it does not feel as effective. She states that she is just having meltdowns at school and crying for almost no reason. She feels stress with her school work, has a hard time focusing in certain classes and just overall feels like she is unhappy. Denies any SI/HI. She has had recent big changes in her life. She lost 3 family members this year and 2 of them were unexpected passing of her cousin and her uncle. She used to talk with someone in the past and does feel that this would be beneficial. [facility] Medical History PCOS (polycystic ovarian syndrome) Generalized anxiety disorder with panic attacks IBS (irritable bowel syndrome) Family History Mother Hypothyroid Maternal Grandfather FH: prostate cancer Paternal Uncle No problems noted. Family/Other Colon cancer Paternal Aunt Hx of colonic polyp Social History (Updated 11/21/24 @ 11:17 by Debbi Almaguer CMA) Housing: House Alcohol intake: current Patient Tobacco Use Status: Never used Tobacco e-Cigarette/Vaping Use: Never Used Second Hand Smoke Exposure: No Substance Use Type: Marijuana service: No Current occupational status: unemployed and student Cognitive needs: No Hearing needs: No Vision needs: No Questionnaire PHQ-9 Over the last 2 weeks, how often have you been bothered by any of the following problems? 1. Little interest or pleasure in doing things: more than half the days 2. Feeling down, depressed, or hopeless: more than half the days 3. Trouble falling or staying asleep, or sleeping too much: several days 4. Feeling tired or having little energy: more than half the days 5. Poor appetite or overeating: more than half the days 6. Feeling bad about yourself - or that you are a failure or have let yourself or your family down: nearly every day 7. Trouble concentrating on things, such as reading the newspaper or watching television: nearly every day 8. Moving or speaking so slowly that other people could have noticed. Or the opposite - being so fidgety or restless that you have been moving around a lot more than usual: more than half the days 9. Thoughts that you would be better off or of hurting yourself in some way: not at all Total score: 17 Depression Screening Interpretation: Positive Depression Screening Follow-up: Existing condition, In treatment, Change in Medication, Community Mental Health Worker F/U and Follow-up Visit Requested Depression Screening Done: Yes 89725 - PHQ-9 Billing: Yes Source: Developed by Drs. Tristan Moon, Alise Espinoza, Agapito Higgins and colleagues, with an educational bryant from [employer]. Thrive Questionnaire Date Thrive assessed: 11/21/24 I am a: Patient What is your living situation today?: I have a steady place to live Within the past 12 months, did the food you bought not last and you didn't have the money to get more?: Never true Within the past 12 months, did you worry whether your food would run out before you got money to buy more?: Never true Do you have trouble paying for medicines?: No Do you have trouble getting transportation to medical appointments?: No Do you have trouble paying your heating and electricity bill?: No Do you have trouble taking care of your child, family member or friend?: No Do you have trouble with day-to-day activities such as bathing, preparing meals, shopping, managing finances, etc.?: No Are you currently unemployed and looking for a job?: No Are you interested in more education?: No Please select the resources that you would like help with: None Currently or been in a relationship where the following occur: No concerns reported THRIVE Score: 0 AUDIT C Alcohol Use Questionnaire (AUDIT-C) 1. How often do you have a drink containing alcohol?: Monthly or less 2. How many drinks containing alcohol do you have on a typical day when you are drinking?: 1 or 2 3. How often do you have six or more drinks on one occasion?: Less than monthly Total Score: 2 REESE-7 AMB Questionnaire REESE-7 Date REESE - 7 assessed: 05/17/24 Feeling nervous, anxious, or on edge: 3 = Nearly every day Not being able to stop or control worryin = Nearly every day Worrying too much about different things: 3 = Nearly every day Trouble relaxin = Nearly every day Being so restless that it is hard to sit still: 2 = More than half the days Becoming easily annoyed or irritable: 3 = Nearly every day Feeling afraid as if something awful might happen: 2 = More than half the days Total REESE-7 score (0-4 normal; 5-9 mild; 10-14 moderate; 15-21 severe): 19 Source: Developed by Drs. Tristan Moon, Alise Espinoza, Agapito Higgins and colleagues, with an educational bryant from [employer]. REESE-7 Assessment Billing REESE-7 Assessment Tool: REEES-7 Assessment 79570 Physical exam (Primary Care) Vital Signs: Last Vital Signs Pulse 73 11/21/24 11:12 Resp 12 11/21/24 11:12 BP 100/72 11/21/24 11:12 Pulse Ox 99 11/21/24 11:12 Oxygen Delivery Method Room Air 11/21/24 11:12 BMI result Body Mass Index 21.7 Tobacco/Smoking Status: Tobacco use Status Tobacco use date assessed 11/21/24 11/21/24 11:19 Patient Tobacco Use Status Never used Tobacco 11/21/24 11:19 e-Cigarette/Vaping Use Never Used 11/21/24 11:19 PHQ-9: PHQ-9 Score PHQ-9: Total score 17 11/21/24 11:19 Depression Screening Interpretation: Positive Depression Screening Follow-up: Existing condition, In treatment, Change in Medication, Community Mental Health Worker F/U and Follow-up Visit Requested Thrive Assessment: Date of Thrive Assessment Date Thrive assessed 11/21/24 11/21/24 11:19 Currently or been in a relationship where the following occur: No concerns reported Const Orientation/consciousness: patient oriented x3 HENMT Ears: hearing grossly normal bilaterally Neck Thyroid: Thyroid normal Lymphatic: no lymphadenopathy noted Resp Auscultation: clear to auscultation bilaterally Cardio Rate: regular rate Rhythm: regular rhythm Heart sounds: S1 normal heart sound present and S2 normal heart sound present GI Inspection: Yes normal to inspection Palpation (GI): Soft to palpation and Other GI palpation findings present (nontender, no cva tenderness) Auscultation: normoactive bowel sounds Rectal Exam - Female: deferred Skin General skin exam: no rashes or lesions noted Neuro General: patient oriented x3, gait normal and no focal motor deficits Coding Level of Care Code Est Pt Level 4 (31773) Complex EM visit Add On G2211 Diagnoses Generalized anxiety disorder with panic attacks F41.1; F41.0 Depression, major, recurrent, moderate F33.1 Additional Codes REESE-7 Assessment Billing - REESE-7 Assessment Tool: REESE-7 Assessment 45227 ([id number]) PHQ-9 - 38486 - PHQ-9 Billing: Yes ([id number]) Assessment & Plan Assessment & Plan (1) Generalized anxiety disorder with panic attacks: Code(s): F41.1 - Generalized anxiety disorder; F41.0 - Panic disorder [episodic paroxysmal anxiety] Category: Medical Plan: Increase Celexa. I have referred her to [facility]. Phone number provided. (2) Depression, major, recurrent, moderate: Code(s): F33.1 - Major depressive disorder, recurrent, moderate Category: Medical Plan: Labs ordered. As above. Short term follow up arranged. She will follow up sooner if anything worsens or changes. Patient understands and agrees with the plan. Orders: Orders Comprehensive Met. Panel Today F33.1 - Major depressive disorder, recurrent, moderate, F41.0 - Panic disorder [episodic paroxysmal anxiety], F41.1 - Generalized anxiety disorder TSH reflex Free T4 Today F33.1 - Major depressive disorder, recurrent, moderate, F41.0 - Panic disorder [episodic paroxysmal anxiety], F41.1 - Generalized anxiety disorder Vitamin B12 and Folate Today F33.1 - Major depressive disorder, recurrent, moderate, F41.0 - Panic disorder [episodic paroxysmal anxiety], F41.1 - Generalized anxiety disorder Complete Blood Count Auto Diff Today F33.1 - Major depressive disorder, recurrent, moderate, F41.0 - Panic disorder [episodic paroxysmal anxiety], F41.1 - Generalized anxiety disorder Referrals Behavioral Health Referral F33.1 - Major depressive disorder, recurrent, moderate, F41.0 - Panic disorder [episodic paroxysmal anxiety], F41.1 - Generalized anxiety disorder Medications: New citalopram (Celexa) 20 mg PO DAILY 90 tabs 0RF
[2024-11-21 11:12] VITALS: BP 100/72; PULSE 73; RESP 12; O2SAT 99; BMI 21.7
== END 2024-11-21 11:42 | disposition home or self-care (01) ==
PROVIDERS: PCP Physician Assistant; Visit Provider Physician Assistant
DX: F41.1 Generalized anxiety disorder (principal); F41.0 Panic disorder [episodic paroxysmal anxiety]; F33.1 Major depressive disorder, recurrent, moderate

== ENCOUNTER → 2024-11-21 10:58 | Outpatient (BNVA) | payer BC, SELFPAY | PROVIDERS: PCP Physician Assistant; Visit Provider Physician Assistant | DX: F41.1 Generalized anxiety disorder (principal); F41.0 Panic disorder [episodic paroxysmal anxiety]; F33.1 Major depressive disorder, recurrent, moderate; Z79.899 Other long term (current) drug therapy | CPT/HCPCS: 96127 ==

== ENCOUNTER 2024-12-26 10:16 | Outpatient (AMB) | payer BC, SELFPAY ==
--- NOTE | 2024-12-26 10:18 | A.OFFPC_ITS ---
Vital Signs 12/26/24 10:19 Height 5 ft 7 in Weight 135 lb 2 oz BMI 21.2 BP 96/62 Blood Pressure Location Rt brachial Position Sitting Respiration 12 Pulse 76 Pulse Source Pulse Oximeter Pulse Oximetry (%) 96 Oxygen Delivery Method Room Air Intake Visit Reasons: anxiety medication. Intake Note: Follow up anxiety Equipment Mechanic Required: No Allergies No Known Allergies Allergy (Verified 12/26/24 10:19) Tobacco use date assessed: 12/26/24 Dental Screening Dental Screen Date: 05/03/24 HPI anxiety medication. HPI Details Patient is a 19-year-old female who presents today for a follow up regarding her anxiety. Psych: She has a history of anxiety and depression and states that recently it has gotten a bit worse. She is currently on Celexa 20 mg which she felt like is effective. At our last visit she was referred to behavioral health and states that she did hear from them about sending her insurance card which she did but has not heard about an appointment. I did give her the phone number today. Denies any SI/HI. She has had recent big changes in her life. She lost 3 family members this year and 2 of them were unexpected passing of her cousin and her uncle. Derm: Skin is well-controlled with the tretinoin cream and spironolactone. GI: States that she still needs to do the stool studies for GI and has an upcoming appointment in January with them. Has had some symptom improvement but does still get generalized abdominal discomfort and multiple episodes bowel movements a day. No blood in the stool or weight loss. [facility] Medical History PCOS (polycystic ovarian syndrome) Generalized anxiety disorder with panic attacks IBS (irritable bowel syndrome) Family History Mother Hypothyroid Maternal Grandfather FH: prostate cancer Paternal Uncle No problems noted. Family/Other Colon cancer Paternal Aunt Hx of colonic polyp Social History (Updated 12/26/24 @ 10:23 by Debbi Almaguer CMA) Housing: House Alcohol intake: current Patient Tobacco Use Status: Never used Tobacco e-Cigarette/Vaping Use: Never Used Second Hand Smoke Exposure: No Use of substances other than those prescribed or required for medical reasons: Yes Substance Use Type: Marijuana service: No Current occupational status: unemployed and student Cognitive needs: No Hearing needs: No Vision needs: No Questionnaire PHQ-9 Over the last 2 weeks, how often have you been bothered by any of the following problems? 1. Little interest or pleasure in doing things: several days 2. Feeling down, depressed, or hopeless: several days 3. Trouble falling or staying asleep, or sleeping too much: not at all 4. Feeling tired or having little energy: not at all 5. Poor appetite or overeating: not at all 6. Feeling bad about yourself - or that you are a failure or have let yourself or your family down: not at all 7. Trouble concentrating on things, such as reading the newspaper or watching television: not at all 8. Moving or speaking so slowly that other people could have noticed. Or the opposite - being so fidgety or restless that you have been moving around a lot more than usual: nearly every day 9. Thoughts that you would be better off or of hurting yourself in some wa y: not at all Total score: 5 Depression Screening Interpretation: Positive Depression Screening Follow-up: Existing condition, In treatment, Change in Medication, Community Mental Health Worker F/U and Follow-up Visit Requested Depression Screening Done: Yes 35094 - PHQ-9 Billing: Yes Source: Developed by Drs. Tristan Moon, Alise Espinoza, Agapito Higgins and colleagues, with an educational bryant from [employer]. Thrive Questionnaire Date Thrive assessed: 11/21/24 I am a: Patient What is your living situation today?: I have a steady place to live Within the past 12 months, did the food you bought not last and you didn't have the money to get more?: Never true Within the past 12 months, did you worry whether your food would run out before you got money to buy more?: Never true Do you have trouble paying for medicines?: No Do you have trouble getting transportation to medical appointments?: No Do you have trouble paying your heating and electricity bill?: No Do you have trouble taking care of your child, family member or friend?: No Do you have trouble with day-to-day activities such as bathing, preparing meals, shopping, managing finances, etc.?: No Are you currently unemployed and looking for a job?: No Are you interested in more education?: No Please select the resources that you would like help with: None Currently or been in a relationship where the following occur: No concerns reported THRIVE Score: 0 REESE-7 AMB Questionnaire REESE-7 Date REESE - 7 assessed: 12/26/24 Feeling nervous, anxious, or on edge: 0 = Not at all Not being able to stop or control worryin = Not at all Worrying too much about different things: 1 = Several days Trouble relaxin = Nearly every day Being so restless that it is hard to sit still: 3 = Nearly every day Becoming easily annoyed or irritable: 1 = Several days Feeling afraid as if something awful might happen: 0 = Not at all Total REESE-7 score (0-4 normal; 5-9 mild; 10-14 moderate; 15-21 severe): 8 Source: Developed by Drs. Tristan Moon, Alise Espinoza, Agapito Higgins and colleagues, with an educational bryant from [employer]. REESE-7 Assessment Billing REESE-7 Assessment Tool: REESE-7 Assessment 66428 Physical exam (Primary Care) Vital Signs: Last Vital Signs Pulse 76 12/26/24 10:19 Resp 12 12/26/24 10:19 BP 96/62 12/26/24 10:19 Pulse Ox 96 12/26/24 10:19 Oxygen Delivery Method Room Air 12/26/24 10:19 BMI result Body Mass Index 21.2 Tobacco/Smoking Status: Tobacco use Status Tobacco use date assessed 12/26/24 12/26/24 10:23 Patient Tobacco Use Status Never used Tobacco 12/26/24 10:23 e-Cigarette/Vaping Use Never Used 12/26/24 10:23 PHQ-9: PHQ-9 Score PHQ-9: Total score 5 12/26/24 10:23 Depression Screening Interpretation: Positive Depression Screening Follow-up: Existing condition, In treatment, Change in Medication, Community Mental Health Worker F/U and Follow-up Visit Requested Thrive Assessment: Date of Thrive Assessment Date Thrive assessed 11/21/24 12/26/24 10:23 Currently or been in a relationship where the following occur: No concerns reported Const Orientation/consciousness: patient oriented x3 HENMT Ears: hearing grossly normal bilaterally Neck Thyroid: Thyroid normal Lymphatic: no lymphadenopathy noted Resp Auscultation: clear to auscultation bilaterally Cardio Rate: regular rate Rhythm: regular rhythm Heart sounds: S1 normal heart sound present and S2 normal heart sound present GI Inspection: Yes normal to inspection Palpation (GI): Soft to palpation and Other GI palpation findings present (nontender, no cva tenderness) Auscultation: normoactive bowel sounds Rectal Exam - Female: deferred Skin General skin exam: no rashes or lesions noted Neuro General: patient oriented x3, gait normal and no focal motor deficits Coding Level of Care Code Est Pt Level 4 (51126) Complex EM visit Add On G2211 Diagnoses Depression, major, recurrent, moderate F33.1 Generalized anxiety disorder with panic attacks F41.1; F41.0 Irritable bowel syndrome, unspecified type K58.9 Irritable bowel syndrome type: unspecified Additional Codes REESE-7 Assessment Billing - REESE-7 Assessment Tool: REESE-7 Assessment 53853 ([id number]) PHQ-9 - 04423 - PHQ-9 Billing: Yes ([id number]) Assessment & Plan Assessment & Plan (1) Depression, major, recurrent, moderate: Code(s): F33.1 - Major depressive disorder, recurrent, moderate Category: Medical Plan: Reports symptom improvement. We will continue current regimen. Phone number provided to [email or web address]. (2) Generalized anxiety disorder with panic attacks: Code(s): F41.1 - Generalized anxiety disorder; F41.0 - Panic disorder [episodic paroxysmal anxiety] Category: Medical Plan: As above. Written no recent breakthrough panic attacks. (3) IBS (irritable bowel syndrome): Code(s): K58.9 - Irritable bowel syndrome, unspecified Category: Medical Qualifiers: Irritable bowel syndrome type: unspecified Qualified Code(s): K58.9 - Irritable bowel syndrome, unspecified Plan: has follow up with GI next month. Currently undergoing workup for IBS. Reminded her to complete stool studies.
[2024-12-26 10:19] VITALS: BP 96/62; PULSE 76; RESP 12; O2SAT 96; BMI 21.2
== END 2024-12-26 10:40 | disposition home or self-care (01) ==
LOC: HO.HMCFM 10:17
PROVIDERS: PCP Physician Assistant; Visit Provider Physician Assistant
DX: F33.1 Major depressive disorder, recurrent, moderate (principal); F41.1 Generalized anxiety disorder; F41.0 Panic disorder [episodic paroxysmal anxiety]; K58.9 Irritable bowel syndrome, unspecified

== ENCOUNTER → 2024-12-26 10:16 | Outpatient (BNVA) | payer BC, SELFPAY | PROVIDERS: PCP Physician Assistant; Visit Provider Physician Assistant | DX: F33.1 Major depressive disorder, recurrent, moderate (principal); F41.1 Generalized anxiety disorder; F41.0 Panic disorder [episodic paroxysmal anxiety]; K58.9 Irritable bowel syndrome, unspecified | CPT/HCPCS: 96127 ==

== ENCOUNTER 2025-01-09 17:02 | Outpatient (REF) | payer BC, SELFPAY | END 2025-01-09 17:03 | disposition home or self-care (01) | LOC: HO.LNP 17:02 | PROVIDERS: Visit Provider Internal Medicine | DX: K58.9 Irritable bowel syndrome, unspecified (principal) | CPT/HCPCS: 83993 ==

== ENCOUNTER 2025-01-28 09:15 | Outpatient (AMB) | payer BC, SELFPAY ==
--- NOTE | 2025-01-28 09:15 | A.OFFVIS_ITS ---
Intake Visit Reasons: 1 mo Intake Note: Connie presents as a telehealth today. CC: She states she has not seen any changes in her stomach issues - she is still having pains in the stomach. Allergies No Known Allergies Allergy (Verified 12/26/24 10:19) HPI Comments Details: 18 y.o F with PMH of IBS-D who is here to establish care. Was previously living in [place], moved to [place] in 2009. Was seen by dangelo MASCORRO and had what sounds like SIBO testing which was normal. Was also given amytriptyline x 2-3 months but caused dry eyes and dry mouth with blurry vision. Currently: reports abd cramping daily, with 3 loose BMs. No blood. Sometimes have to wake up from sleep. Cramping resolves after a BM. Tried to do gluten free and dairy free which didnt help in her teens. No fam hx of IBD, colon ca. NO hx of EGD/colo. 01/28/25: Here for follow-up as a tele visit. Reports good response to Imodium. Bowel movements are now formed. However, still going 3 to 4 times a day. Takes Imodium at bedtime. Forgets to take it during the day, when she is at school or work. Labs reviewed. Essentially all normal. Consistent with diagnosis of irritable bowel syndrome. Platelets slightly high, and she was advised to follow with PCP for repeat CBC in the future. Laboratory Tests 11/05/24 01/09/25 11:37 16:32 WBC 5.1 Hgb 14.0 Hct 40.9 Plt Count 413 H Tryptase 1.9 TSH 1.98 Stool Calprotectin 38 IgG Total 1172 IgA Total 322 H IgM 77 Tiss Transglutamin IgA 1.4 PFSH Medical History PCOS (polycystic ovarian syndrome) Generalized anxiety disorder with panic attacks IBS (irritable bowel syndrome) Family History Mother Hypothyroid Maternal Grandfather FH: prostate cancer Paternal Uncle No problems noted. Family/Other Colon cancer Paternal Aunt Hx of colonic polyp Social History Housing: House Alcohol intake: current Patient Tobacco Use Status: Never used Tobacco e-Cigarette/Vaping Use: Never Used Second Hand Smoke Exposure: No Substance Use Type: Marijuana service: No Current occupational status: unemployed and student Cognitive needs: No Hearing needs: No Vision needs: No Review of Systems Const All systems reviewed & are unremarkable except as noted in HPI and below Physical Exam Vital Signs: Video visit: No acute distress No icterus noted No facial asymmetry Speaking in full sentences Telehealth Telehealth Telehealth Platform: [employer] Location of provider rendering services: practice address Location of patient: address on file Patient Identification confirmed using: Name, : Yes Telehealth method: video Patient verbally consented to treatment: Yes Patient verbally consented to billing insurance company: Yes Patient informed of any privacy concerns related to visit: Yes Minutes spent on Phone/Video with Pt.: 7 Assessment & Plan Assessment & Plan (1) IBS (irritable bowel syndrome): Code(s): K58.9 - Irritable bowel syndrome, unspecified Category: Medical Qualifiers: Irritable bowel syndrome type: unspecified Qualified Code(s): K58.9 - Irritable bowel syndrome, unspecified (2) Diarrhea: Code(s): R19.7 - Diarrhea, unspecified Category: Medical Plan Good response to loperamide so far. Advised to increase to b.i.d. dosing to further help with stool frequency. If patient has less than 2 bowel movements per day, but continues to have global burden of symptoms including abdominal pain and cramping, will consider neuromodulator at that time. TCA preferred due to side effects of constipation. Patient will reach out to us over the portal, if no response to upping loperamide to BID. Otherwise follow-up in 6 months. Coding Level of Care Code Tele Est Pt Level 3 (49603) Diagnoses Irritable bowel syndrome, unspecified type K58.9 Irritable bowel syndrome type: unspecified Diarrhea R19.7
== END 2025-01-28 11:43 | disposition home or self-care (01) ==
LOC: HO.HGI 09:15
PROVIDERS: PCP Physician Assistant; Visit Provider Internal Medicine
DX: K58.9 Irritable bowel syndrome, unspecified (principal); R19.7 Diarrhea, unspecified
CPT/HCPCS: 99213

== ENCOUNTER 2025-02-11 15:29 | Emergency (ER) | payer BC, SELFPAY ==
--- NOTE | 2025-02-11 15:30 | ED.GENADULT ---
HPI - General Adult General Chief complaint: Nausea/Vomiting/Diarrhea Stated complaint: Vomiting Time Seen by Provider: 02/11/25 16:24 Source: patient Mode of arrival: ambulatory Limitations: no limitations History of Present Illness ED Provider: Dr. Orr HPI narrative: 19-year-old female daily marijuana user recurrent episodes of nausea and vomits every morning who presents emergency department complaining of nausea and vomiting that did not resolve with her typical treatment. She states she does not take marijuana for any other reason she states she does not take showers to help her with her nausea she notes that she has always had issues with her belly when I tried to broach the subject of cannabis hyperemesis interpretation with marijuana use she states that is not anything related to her symptoms I did explain that is common I feel they do have the issue if she continues to have recurrent vomiting we would recommend stopping cannabis use. Related Data Home Medications ?Medication ?Instructions ?Recorded ?Confirmed tretinoin 0.025 % topical cream 1 appl topical BEDTIME 01/05/24 11/21/24 spironolactone 50 mg tablet 50 mg PO BID 11/05/24 11/21/24 Previous Rx's ?Medication ?Instructions ?Recorded drospirenone 3 mg-ethinyl 1 tab PO DAILY #84 tabs 05/17/24 estradiol 0.02 mg tablet (Lo-Zumandimine (28)) loperamide 2 mg tablet (Imodium 2 mg PO QID PRN loose stool #90 11/05/24 A-D) tabs citalopram 20 mg tablet (Celexa) 20 mg PO DAILY #90 tabs 11/21/24 ondansetron 4 mg disintegrating 4 mg PO Q6H #14 tabs 02/11/25 tablet Allergies Allergy/AdvReac Type Severity Reaction Status Date / Time No Known Allergies Allergy Verified 02/11/25 15:35 Review of Systems Review of Systems: Review of systems: General: Patient denies any fever chills recent illness or falls Musculoskeletal: Denies back pain or body aches or other injuries HEENT: denies headache, runny nose, ear pain Respiratory: denies shortness of breath, cough Cardiovascular: no chest pain or palpitations : denies dysuria, frequency Abdomen: nausea vomiting denies abdominal pain Extremities: no swelling, no pain Skin: no diaphoresis Yes all other systems are reviewed and are negative PMFSH Past Medical History Medical History PCOS (polycystic ovarian syndrome) Generalized anxiety disorder with panic attacks IBS (irritable bowel syndrome) Family History Family History Mother Hypothyroid Maternal Grandfather FH: prostate cancer Paternal Uncle No problems noted. Family/Other Colon cancer Paternal Aunt Hx of colonic polyp Social History Social History Housing: House Alcohol intake: current Patient Tobacco Use Status: Never used Tobacco e-Cigarette/Vaping Use: Never Used Second Hand Smoke Exposure: No Substance Use Type: Marijuana Advance Directives: No Advance Directives Information Provided: Yes Do you have a plan to hurt others: No Plan service: No Current occupational status: unemployed and student Cognitive needs: No Hearing needs: No Vision needs: No Physical Exam ED Vital Signs: Vital Signs - 24 hr 02/11/25 15:33 Temperature 97.8 F Pulse Rate 83 Respiratory Rate 18 Blood Pressure 133/83 Pulse Oximetry 97 Oxygen Delivery Method Room Air BMI result Body Mass Index 18.9 General: Well-appearing well-nourished in no signs of distress HEENT: Normocephalic atraumatic Neck: No signs of JVD, no masses no tenderness or lymphadenopathy Cardiovascular: Regular rate and rhythm Respiratory: Clear to auscultation bilaterally Abdomen: Soft nontender no masses Extremities: Normal pedal pulses no signs of edema Skin: Dry warm no rashes Back: No tenderness full ROM Course Course Course Narrative: RME, this is a rapid medical exam performed by Armando Carrion please refer to primary provider for complete H&P- 19 year old female presents for evaluation of nausea and vomiting every 30 minutes for the last 9 hours. Plan for labs, UA, . We will give a dose of Zofran ODT Medications Administered Discontinued Medications Generic Name Dose Route Start Last Admin Trade Name Freq PRN Reason Stop Dose Admin Ondansetron HCl 4 mg 02/11/25 15:34 02/11/25 15:40 Ondansetron Odt 4 Mg Tab.Rapdis TRANSLINGU 02/11/25 15:35 4 mg ONCE ONE Administration Medical Decision Making Medical Decision Making [facility] Narrative: patient looks well has a benign abdomen I do think this is related to cannabis use I do feel comfortable discharging the patient home I do not think she needs any imaging patient is okay with this plan for Differential Diagnosis Differential Diagnoses: The differential diagnosis associated with the presentation includes Cannabis hyperemesis dehydration electrolyte abnormality Admission/Observation Consideration of admission/observation: Escalation of care including admission/observation considered Lab Data [facility] Lab Attestation statement: I reviewed the patient's lab results. 02/11/25 15:48 02/11/25 15:48 Labs: Lab Results 02/11/25 Range/Units 15:48 WBC 12.0 H (4.8-10.8) X10*3/uL RBC 4.90 (4.20-5.50) X10*6/uL Hgb 13.9 (12.0-16.0) g/dl Hct 39.3 (37.0-47.0) % MCV 80.2 (80.0-98.0) fL MCH 28.4 (27.0-33.0) pg MCHC 35.4 H (31.0-35.0) g/dl RDW 12.1 (11.0-16.0) % Plt Count 422 H (160-400) X10*3/uL MPV 9.1 L (9.4-12.3) fL Immature Gran % (Auto) 0.4 (0.0-0.4) % Neut % (Auto) 93.3 H (45-73) % Lymph % (Auto) 4.5 L (20-40) % Luce % (Auto) 1.4 L (2-11) % Eos % (Auto) 0.0 (0-4) % Baso % (Auto) 0.4 (0-2) % Lymph # (Auto) 0.5 L (1.2-4.9) X10*3/uL Luce # (Auto) 0.2 (0.1-1.2) X10*3/uL Eos # (Auto) 0.0 (0.0-0.4) X10*3/uL Baso # (Auto) 0.1 (0.0-0.2) X10*3/uL Abs Immat Gran (auto) 0.05 H (0.00-0.03) X10*3/uL Absolute Neuts (auto) 11.2 H (2.0-8.3) x10*3/uL Absolute Nucleated RBC 0.000 (0.0-0.012) X10*3/uL Nucleated RBC % (auto) 0.0 (0.0-0.2) /100WBC Sodium 138 (135-145) mmol/L Potassium 4.5 (3.3-5.1) mmol/L Chloride 106 (96-108) mmol/L Carbon Dioxide 20 L (22-29) mmol/L Anion Gap 17 (12-20) BUN 13 (9-16) mg/dL Creatinine 0.68 (0.5-1.4) mg/dL Estim Creat Clear Calc 113.0 Estimated GFR > 60 Random Glucose 111 (60-115) mg/dL Calcium 9.9 (8.4-10.2) mg/dL Total Bilirubin 0.5 (0.0-1.0) mg/dL AST 27 (5-31) U/L ALT 25 (0-31) U/L Alkaline Phosphatase 59 (39-117) U/L Total Protein 7.8 (6.5-8.0) g/dL Albumin 4.6 (3.5-5.0) g/dL Lipase 13 (8-78) U/L Beta HCG, Quant < 2 mIU/mL Influenza Type A (PCR) NEGATIVE (Negative) Influenza Type B (PCR) NEGATIVE (Negative) RSV RNA Qual (PCR) NEGATIVE (Negative) SARS-CoV-2 RNA (RT-PCR) NEGATIVE (Negative) S. pyogenes GrpA JANNA Negative (Negative) External Record Review External record reviewed: Inpatient record and Office record Discharge Plan Discharge Clinical Impression: Dehydration, Vomiting Patient Disposition: Home, Self-Care Instructions: Dehydration (DC), Acute Nausea and Vomiting (DC) Additional Instructions: You were seen today for vomiting and dehdyration You had labs done which were all normal. Please call to joss sparks with your doctor. Prescriptions: New ondansetron 4 mg tablet,disintegrating 4 mg PO Q6H Qty: 14 0RF No Action loperamide [Imodium A-D] 2 mg tablet 2 mg PO QID PRN (Reason: loose stool) Qty: 90 1RF tretinoin 0.025 % cream 1 appl topical BEDTIME drospirenone-ethinyl estradiol [Lo-Zumandimine (28)] 3-0.02 mg tablet 1 tab PO DAILY Qty: 84 3RF spironolactone 50 mg tablet 50 mg PO BID citalopram [Celexa] 20 mg tablet 20 mg PO DAILY Qty: 90 0RF Stand Alone Forms: Work/School Release Print Language: Maltese
[2025-02-11 15:33] VITALS: BP 133/83; PULSE 83; RESP 18; TEMP 36.6; O2SAT 97; BMI 18.9
[2025-02-11] MEDS: Ondansetron ODT 4 MG TAB.RAPDIS TRANSLINGU (15:40)
[2025-02-11 15:53] LABS: MANUAL DIFF FLAG NO
[2025-02-11 15:59] LABS: Basophils Absolute Auto 0.1 X10*3/uL (0.0-0.2); Basophils Percent Auto 0.4 % (0-2); Hematocrit 39.3 % (37.0-47.0); Hemoglobin 13.9 g/dl (12.0-16.0); Imm Gran Abs Auto 0.05 X10*3/uL (0.00-0.03); Imm Gran Pct Auto 0.4 % (0.0-0.4); Lymphocytes Absolute Auto 0.5 X10*3/uL (1.2-4.9); Lymphocytes Percent Auto 4.5 % (20-40); Mean Corpuscular HGB Conc 35.4 g/dl (31.0-35.0); Mean Corpuscular Hemoglobin 28.4 pg (27.0-33.0); Mean Corpuscular Volume 80.2 fL (80.0-98.0); Mean Platelet Volume 9.1 fL (9.4-12.3); Monocytes Absolute Auto 0.2 X10*3/uL (0.1-1.2); Monocytes Percent Auto 1.4 % (2-11); Neutrophils Absolute Auto 11.2 x10*3/uL (2.0-8.3); Neutrophils Percent Auto 93.3 % (45-73); Platelet Count 422 X10*3/uL (160-400); Red Cell Distribution Width 12.1 % (11.0-16.0); SCAN SMEAR FLAG 1
[2025-02-11 16:05] LABS: IDNOW Serial# 55D5AD1C; Strep A Nucleic Acid Negative (Negative)
[2025-02-11 16:23] LABS: Alanine Aminotransferase 25 U/L (0-31); Albumin Level 4.6 g/dL (3.5-5.0); Anion Gap 17 (12-20); Aspartate Amino Transferase 27 U/L (5-31); Bilirubin Total 0.5 mg/dL (0.0-1.0); Blood Urea Nitrogen 13 mg/dL (9-16); Calcium 9.9 mg/dL (8.4-10.2); Carbon Dioxide 20 mmol/L (22-29); Chloride 106 mmol/L (96-108); Estimated Glomerular Filt Rate > 60; Glucose Random 111 mg/dL (60-115); HCG Quantitative < 2 mIU/mL; Lipase 13 U/L (8-78); Potassium 4.5 mmol/L (3.3-5.1); Sodium 138 mmol/L (135-145); Total Protein 7.8 g/dL (6.5-8.0)
[2025-02-11 16:36] LABS: Influenza A PCR NEGATIVE (Negative); Influenza B PCR NEGATIVE (Negative); Resp Syncy Virus RNA Qual PCR NEGATIVE (Negative); SARS COV2 PCR INHOUSE NEGATIVE (Negative)
[2025-02-11 16:45] LABS: Alkaline Phosphatase 59 U/L (39-117)
[2025-02-11 17:39] VITALS: BP 133/83; PULSE 83; RESP 18; TEMP 36.6; O2SAT 97
== END 2025-02-11 17:49 | disposition home or self-care (01) ==
PROVIDERS: Physician Assistant; Emergency Provider Student in an Organized Health Care Education/Training Program; PCP Physician Assistant
DX: E86.0 Dehydration (principal); R11.2 Nausea with vomiting, unspecified; F12.90 Cannabis use, unspecified, uncomplicated; Z03.818 Encounter for observation for suspected exposure to other biological agents ruled out; R10.84 Generalized abdominal pain; F41.1 Generalized anxiety disorder; Z79.899 Other long term (current) drug therapy
CPT/HCPCS: 0241U; 80053; 83690; 84702; 85025; 87651; 99283

== ENCOUNTER 2025-09-12 08:29 | Day surgery (SDC) | payer BC, SELFPAY ==
--- NOTE | 2025-09-09 14:59 | P.CONAN_ITS ---
Documented by User: Madelaine Conroy NP 09/09/25 14:59 HPI - Anesthesia Eval Consult details Narrative: 19yo F for Upper Endoscopy and Colonoscopy [facility] Active Problems Active Problems: All Active Problems Depression, major, recurrent, moderate (Acute) Generalized anxiety disorder with panic attacks (Acute) IBS (irritable bowel syndrome) (Acute) Diarrhea (Acute) Generalized abdominal pain (Acute) Past Medical History Medical History PCOS (polycystic ovarian syndrome) Generalized anxiety disorder with panic attacks IBS (irritable bowel syndrome) Family History Family History Mother Hypothyroid Maternal Grandfather FH: prostate cancer Paternal Uncle No problems noted. Family/Other Colon cancer Paternal Aunt Hx of colonic polyp Social History Social History Housing: House Alcohol intake: current Patient Tobacco Use Status: Never used Tobacco e-Cigarette/Vaping Use: Never Used Second Hand Smoke Exposure: No Substance Use Type: Marijuana Advance Directives: No Advance Directives Information Provided: Yes service: No Current occupational status: unemployed and student Cognitive needs: No Hearing needs: No Vision needs: No Meds Allergies Allergy/AdvReac Type Severity Reaction Status Date / Time No Known Allergies Allergy Verified 02/11/25 15:35 Home Medications ?Medication ?Instructions ?Recorded ?Confirmed ?Last Taken ?Type tretinoin 0.025 % topical cream 1 appl topical BEDTIME 01/05/24 11/21/24 Unknown History spironolactone 50 mg tablet 50 mg PO BID 11/05/2406/27 Unknown History Assessment and Plan Assessment Anesthesia Assessment: Chart Reviewed Documented by User: Odessa Mckeon MD 09/12/25 09:10 PMFSH Past Medical History Medical History PCOS (polycystic ovarian syndrome) Generalized anxiety disorder with panic attacks IBS (irritable bowel syndrome) Family History Family History Mother Hypothyroid Maternal Grandfather FH: prostate cancer Paternal Uncle No problems noted. Family/Other Colon cancer Paternal Aunt Hx of colonic polyp Family history of problems with anesthesia: No Surgical History History of Problems with Anesthesia: No Social History Social History Housing: House Alcohol intake: current Patient Tobacco Use Status: Never used Tobacco e-Cigarette/Vaping Use: Never Used Second Hand Smoke Exposure: No Substance Use Type: Marijuana Advance Directives: No Advance Directives Information Provided: Yes service: No Current occupational status: unemployed and student Cognitive needs: No Hearing needs: No Vision needs: No Meds Allergies Allergy/AdvReac Type Severity Reaction Status Date / Time No Known Allergies Allergy Verified 02/11/25 15:35 Home Medications ?Medication ?Instructions ?Recorded ?Confirmed ?Last Taken ?Type tretinoin 0.025 % topical cream 1 appl topical BEDTIME 01/05/24 11/21/24 Unknown History spironolactone 50 mg tablet 50 mg PO BID 11/05/2406/27 Unknown History Exam Airway Mallampati Class: II TM Dist: >3cm Heart: rrr Lungs: cta Assessment and Plan Assessment Anesthesia Assessment: Anesthesia Plan Discussed Final Anesthetic Review Family History of Problems with Anesthesia: No History of Problems with Anesthesia: No NPO: Yes ASA Class: II Final Preanesthetic Review: No Changes in Pt Med Stat, Meds/Allgs Chart Reviewed, Consent Obtained/Reviewed and Anes Risks/Benef Reviewed Patient Risk: Low Procedure Risk: Low Anesthetic Plan Anesthetic Plan: MAC: and Agree w/ Assess. and Plan Disposition: Standard PACU
[2025-09-10 11:08] VITALS: BMI 21.1
[2025-09-12 08:58] LABS: UPreg QC Valid YES
[2025-09-12 09:22] VITALS: BMI 19.3
[2025-09-12 09:38] VITALS: BP 107/59; PULSE 75; RESP 12; TEMP 36.9; O2SAT 99
[2025-09-12] MEDS: Lactated Ringers 1,000 ML 100 ML IVCONT (09:45)
--- NOTE | 2025-09-12 10:36 | MHC.SHP ---
Pre-Procedural Eval Section A - 24 Hr Update-Section A only Date of Service: 09/12/25 Section B - Complete if H&P > 30 days Chief Complaint: Unspecified abdominal pain,diarrhea Details of Present Illness: PCOS (polycystic ovarian syndrome) Generalized anxiety disorder with panic attacks IBS (irritable bowel syndrome) Family History Mother Hypothyroid Maternal Grandfather FH: prostate cancer Paternal Uncle No problems noted. Family/Other Colon cancer Paternal Aunt Hx of colonic polyp Present Medications: see Short Stay Collaborative assessment Allergies: Allergies Allergy/AdvReac Type Severity Reaction Status Date / Time No Known Allergies Allergy Verified 02/11/25 15:35 Review of Systems Review of Systems Comment: Ten point ROS negative Exam Exam Comment: Gen appear: No acute distress HEENT: no icterus Chest: No overt resp distress Abd: soft, nontender, nondistended Psych: Stable affect, answering questions appropriately Neuro: A/Ox3 noted to move all extremities spontaneously Ext: no peripheral edema Plan Diagnosis/Plan: Unchanged I have reviewed the history and physical and performed a pertinent physical examination on my patient. No changes have occurred unless specified. Time Spent With Patient Time: Total time managing care of this patient today ____ minutes.
[2025-09-12 11:30] VITALS: BP 101/66; PULSE 91; RESP 17; TEMP 36.3; O2SAT 98
--- NOTE | 2025-09-12 11:34 | P.OPN-COLO_ITS ---
Colonoscopy Operative Note Operative Note Date of Service: 09/12/25 Narrative: Procedure: Upper endoscopy and colonoscopy Indication: Abd pain, diarrhea Endoscopist: Soo Mireles MD Anesthesia Provider: Ginette Limon CRNA Anesthesia type: MAC Instrument: [id number] and [id number] EGD Procedure:?? The procedure, indications, preparation and potential complications were reviewed with the patient, who indicated understanding and gave written informed consent to proceed. The endoscope was introduced through the mouth, and advanced to the 2nd part of the duodenum. The mucosa was carefully examined on slow withdrawal of the endoscope. The patient tolerated the procedure well. There were no immediate complications.? EGD Findings:? * Esophagus:? Small 5 mm erosion was noted at the GE junction. The Z-line was at 36 cm. * Stomach:? Normal gastric mucosa. Retroflexion was performed in the cardia. Random cold forceps biopsies were taken from the stomach. * Duodenum:? Normal duodenal mucosa. Cold forceps biopsies were taken from the duodenal bulb and 2nd portion of the duodenum to rule out celiac sprue. Colonoscopy Procedure:? The patient was then turned for the colonoscopy. A digital rectal exam was performed which was normal.? A distal attachment cap was affixed to the tip of the scope and the colonoscope was then inserted through the anus and advanced through the colon and advanced to the cecum at 75 cm and terminal ileum.? Appendiceal orifice and ileocecal valve were identified. Mucosa was carefully examined under high definition white light as the instrument was slowly withdrawn in a retrograde panoramic fashion. Retroflexion was performed in rectum. The procedure was not difficult. The quality of the prep was BBPS:3 +3+3 = adequate Withdrawal time 6 minutes Limitations: No limitations Findings: Mucosa: Normal colon and terminal ileum mucosa. Cold forceps biopsies were taken from the right and left side of the colon to rule out microscopic colitis. Protruding lesions: * Small internal hemorrhoids without stigmata of recent bleeding. Impression: 1. Grade A esophagitis 2. Normal stomach (biopsy) 3. Normal duodenum (biopsy) 4. Normal colon and terminal ileum mucosa (biopsy) 5. Internal hemorrhoids Recommendations:?? * Follow-up path results * Avoid NSAIDs * H Pylori treatment if biopsies + * Start asymptomatic colorectal ca screening at age 45.
[2025-09-12 11:35] VITALS: BP 102/46; PULSE 90; RESP 16; O2SAT 97
[2025-09-12 11:45] VITALS: BP 102/46; BP 119/68; PULSE 90; RESP 14; RESP 16; TEMP 36.3; O2SAT 97
== END 2025-09-12 12:15 | disposition home or self-care (01) ==
PROVIDERS: Nurse Practitioner; PCP Physician Assistant; Visit Provider Internal Medicine
PROC: (CPT 45380; principal; 2025-09-12 10:10)
DX: R10.9 Unspecified abdominal pain (principal); R19.7 Diarrhea, unspecified; K58.9 Irritable bowel syndrome, unspecified; K64.8 Other hemorrhoids; K20.90 Esophagitis, unspecified without bleeding
CPT/HCPCS: 45380; 43239; 81025; 88305; 88313; 88342; J2003; J2250; J2704; J3010

== ENCOUNTER → 2025-09-12 08:29 | Outpatient (BNV) | payer BC, SELFPAY | PROVIDERS: PCP Physician Assistant; Visit Provider Internal Medicine | DX: R10.9 Unspecified abdominal pain (principal); K20.90 Esophagitis, unspecified without bleeding; R19.7 Diarrhea, unspecified; K64.8 Other hemorrhoids | CPT/HCPCS: 43239; 45380 ==

== ENCOUNTER 2025-09-23 13:46 | Outpatient (AMB) | payer BC, SELFPAY ==
--- NOTE | 2025-09-23 13:48 | A.OFFVIS_ITS ---
Vital Signs 09/23/25 13:53 Height 5 ft 7 in Weight 126 lb BMI 19.7 BP 118/71 Blood Pressure Location Lt brachial Position Sitting Pulse 97 Intake Visit Reasons: egd and colo follow up Intake Note: Connie presents in the office as a EGD and COLO follow up. CC: She states that her stomach is still messed up - she has Nausea and vomiting a lot with diarrhea. She said one time there was blood in the vomit. she has nausea a lot but her vomiting has gotten better. 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 Was previously living in [place], moved to [place] in 2009. Was seen by dangelo MASCORRO and had what sounds like SIBO testing which was normal. Was also given amytriptyline x 2-3 months but caused dry eyes and dry mouth with blurry vision. Currently: reports abd cramping daily, with 3 loose BMs. No blood. Sometimes have to wake up from sleep. Cramping resolves after a BM. Tried to do gluten free and dairy free which didnt help in her teens. No fam hx of IBD, colon ca. NO hx of EGD/colo. 01/28/25: Here for follow-up as a tele visit. Reports good response to Imodium. Bowel movements are now formed. However, still going 3 to 4 times a day. Takes Imodium at bedtime. Forgets to take it during the day, when she is at school or work. Labs reviewed. Essentially all normal. Consistent with diagnosis of irritable bowel syndrome. Platelets slightly high, and she was advised to follow with PCP for repeat CBC in the future. Laboratory Tests 11/05/24 01/09/25 11:37 16:32 WBC 5.1 Hgb 14.0 Hct 40.9 Plt Count 413 H Tryptase 1.9 TSH 1.98 Stool Calprotectin 38 IgG Total 1172 IgA Total 322 H IgM 77 Tiss Transglutamin IgA 1.4 09/12/25: EGD/colo 1. Grade A esophagitis 2. Normal stomach (biopsy) 3. Normal duodenum (biopsy) 4. Normal colon and terminal ileum mucosa (biopsy) 5. Internal hemorrhoids A. Duodenum, biopsy: Duodenal mucosa within normal limits; preserved villous architecture and no increase in intraepithelial lymphocytes seen. B. Stomach, random, biopsy: Gastric antral and body mucosa within normal limits; negative for Helicobacter pylori, intestinal metaplasia and dysplasia. C. Colon, right side, biopsy: Colonic mucosa within normal limits; negative for active, chronic or microscopic colitis. D. Colon, left side, biopsy: Colonic mucosa within normal limits; negative for active, chronic or microscopic colitis. 09/23/25: Presenting for follow-up to discuss results of her recent upper endoscopy and colonoscopy. Egd with grade A esophagitis otherwise remaining normal. Prior to her procedures, she experienced a period of frequent nausea and vomiting, and thinks that may have led to this endoscopic appearance. The patient was started on omeprazole approximately one week ago for the acid reflux but reports no significant improvement yet. Her primary ongoing issue is consistent with irritable bowel syndrome (IBS), characterized by the sensation of food passing through her quickly, which causes her significant distress and anxiety about needing immediate bathroom access. She reports unintentional weight loss over the past couple of months despite her bowel habits. Her current management for diarrhea includes Imodium twice daily, which provides insufficient relief. She has previously used IBgard on an as-needed basis for flare-ups with variable success. Past workup includes a normal gallbladder ultrasound from a year ago. She takes Celexa for anxiety, prescribed by her primary care provider. --- Pt was informed and consented to the use of ambient scribe for this encounter. --- [facility] Medical History PCOS (polycystic ovarian syndrome) Generalized anxiety disorder with panic attacks IBS (irritable bowel syndrome) Surgical History (Updated 09/23/25 @ 13:54 by DANIA Walsh) Hx of colonoscopy History of esophagogastroduodenoscopy (EGD) Family History Mother Hypothyroid Maternal Grandfather FH: prostate cancer Paternal Uncle No problems noted. Family/Other Colon cancer Paternal Aunt Hx of colonic polyp Social History Housing: House Alcohol intake: current Patient Tobacco Use Status: Never used Tobacco e-Cigarette/Vaping Use: Never Used Second Hand Smoke Exposure: No Substance Use Type: Marijuana service: No Current occupational status: unemployed and student Cognitive needs: No Hearing needs: No Vision needs: No Review of Systems Const All systems reviewed & are unremarkable except as noted in HPI and below Physical Exam Exam Exam: No apparent distress Nonicteric Abdomen soft, nondistended Alert and oriented x3, normal gait Vital Signs: Last Vital Signs Pulse 97 09/23/25 13:53 BP 118/71 09/23/25 13:53 BMI result Body Mass Index 19.7 Assessment & Plan Assessment & Plan (1) IBS (irritable bowel syndrome): Code(s): K58.9 - Irritable bowel syndrome, unspecified Category: Medical Qualifiers: Irritable bowel syndrome type: unspecified Qualified Code(s): K58.9 - Irritable bowel syndrome, unspecified (2) Esophagitis: Code(s): K20.90 - Esophagitis, unspecified without bleeding Plan 1. Irritable Bowel Syndrome with Diarrhea (IBS-D) - The patient's symptoms are consistent for IBS-D, and the diagnosis was reviewed and reinforced today. Current treatment with Imodium 2x/day is providing inadequate relief Plan: - Increase Imodium dose to four times a day ( or can take two pills in the morning and two at night for ease of administration) for one week to assess for improved symptom control. - If Imodium is not effective, she will start cholestyramine, - A prescription has been sent to her pharmacy, and she was counseled to take it separately from other medications. - OTC peppermint oil based supplement. - A HIDA scan will be ordered to rule out gallbladder dyskinesia. - Based on response to above can discuss rifaximin vs alosteron vs eluxadoline in future. 2. Gastroesophageal Reflux Disease (GERD) with mild esophagitis - Continue omeprazole 20 for at least three months Follow-up 2 months Orders: Orders NM hepatobiliary w pharm Today K58.9 - Irritable bowel syndrome, unspecified Medications: New cholestyramine (Cholestyramine Light) administer w/meal; avoid other meds within 1hr before or 4-6hr after dose 4 grams PO BID 60 ea 1RF Coding Level of Care Code Est Pt Level 3 (75506) Diagnoses Irritable bowel syndrome, unspecified type K58.9 Irritable bowel syndrome type: unspecified Esophagitis K20.90
[2025-09-23 13:53] VITALS: BP 118/71; PULSE 97; BMI 19.7
--- OUTSIDE RECORDS SUMMARY | 2025-09-23 17:14 | XMS_ITS | Clinical Summary ---
Author Organization [facility] Address [address] [address] Phone Care Team Providers Care Haul Truck Driver Name Role Phone Eufemia Campo MD Primary Care Provider Allergies No known active allergies Medications LO-ZUMANDIMINE, 28, 3-0.02 mg per tablet Take 1 tablet by mouth every morning. 3 Active clindamycin (CLEOCIN T) 1 % lotion Apply a thin layer to face every AM for acne. Wash with BPO daily as tolerated. As low as 2.5% BPO is effective 3 Active benzonatate (TESSALON) 100 MG capsule Take 2 capsules (200 mg total) by mouth 3 (three) times a day as needed for cough. 21 capsule 3 Active Active Problems No known active problems Social History Tobacco Use Types Packs/Day Years Used Date Smoking Tobacco: Never Smokeless Tobacco: Never Tobacco Cessation:Counseling Given: Not Answered Alcohol Use Standard Drinks/Week Comments Never 0 (1 standard drink = 0.6 oz pur e alcohol) Education Answer Date Recorded Are you interested in more education? Not on mirtha e 01/28/2023 Are you concerned about learning? Not on file 01/28/2023 No 01/28/2023 No 01/28/2023 Digital Access Answer Date Recorded No 02/26/2023 No 02/26/2023 Reliable internet access at home? Not on file 02/26/2023 Device with a working camera? Not on file Comments Unknown Sex and Gender Information Value Date Recorded Sex Assigned at Not on file Legal Sex Female 3:33 PM EDT Gender Identity Not on file Sexual Orientation Not on file Last Filed Vital Signs Vital Sign Reading Time Taken Comments Blood Pressure 107/72 06/16/2023 6:49 PM EDT Pulse 88 06/16/2023 6:49 PM EDT Temperature 37.3 C (99.1 F) 06/16/2023 6:49 PM EDT Respiratory Rate 18 06/16/2023 6:49 PM EDT Oxygen Saturation 98% 06/16/2023 6:49 PM EDT Inhaled Oxygen Concentration - - Weight 52.2 kg (115 lb) 07/18/2019 3:42 PM EDT Height - - Body Mass Index - - Plan of Treatment Health Maintenance Due Date Last Done Comments Adult Td,Tdap Booster 2003 MMR VACCINES (1 of 1 - Standard series) 12/08/2004 COMBINED DTaP,Tdap,Td (1 - Tdap) 12/08/2010 DEPRESSION SCREENING 2015 SMOKING Hx and SMOKELESS TOBACCO SCREENING 12/08/2016 CHLAMYDIA SCREENING 2019 ADOLESCENT UNIVERSAL LIPID SCREENING 12/08/2020 HEPATITIS C SCREENING 12/08/2021 HIV ONE-TIME SCREENING (18-6 5 YEARS) 12/08/2021 PAP SMEAR 12/08/2024 INFLUENZA VACCINE (#1) 2025 , 06/27/2020, 07/30/2019 COVID-19 VACCINE (3 - 2024-2 6 season) 2025 02/12/2021, 01/22/2021 HPV VACCINES Completed 03/22/2016, 04/07/2015 MENINGOCOCCAL VACCINES (ACWY) Completed 04/09/2020 MENINGOCOCCAL VACCINES (B) Completed 05/19, 04/14/2022 HEPATITIS A VACCINES Aged Out No long er eligible based on patient's age to complete this topic HIB VACCINES Aged Out No longer eligi ble based on patient's age to complete this topic PNEUMOCOCCAL VACCINES (0-49 years) Aged Out No longer eligible b ased on patient's age to complete this topic Medical Devices Not on file Insurance [facility] PPO EPO [facility] PPO EPO [facility]PO [facility]PO [facility]PO EPO [facility]PO EPO [facility] PPO EPO [facility] PPO EPO [facility] PPO EPO [facility] PPO EPO [facility]PO EPO [facility]PO EPO [facility] PPO EPO [facility] PPO EPO [facility] PPO EPO [facility] PPO EPO Care Teams Haul Truck Driver Relationship Specialty Start Date End Date Eufemia Campo MD [address] [place] [address] PCP - General Pediatrics 07/18/19 Additional Source Comments The information contained in this document represents components of the legal health record. It is not the complete legal health record.[facility]
== END 2025-09-23 14:31 | disposition home or self-care (01) ==
LOC: HO.HGI 13:47
PROVIDERS: PCP Physician Assistant; Visit Provider Internal Medicine
DX: K58.9 Irritable bowel syndrome, unspecified (principal); K20.90 Esophagitis, unspecified without bleeding
CPT/HCPCS: 99213